=== PATIENT | male | born 1970 | race Caucasian/White ===

== ENCOUNTER 2018-06-12 01:19 | Emergency (ER) | payer OTHER ==
[~2018-06-12] VITALS: Ht 182.9 cm; Wt 95.3 kg
--- NOTE | 2018-06-12 01:20 | NUR ---
Dr. Kinney at bedside for MSE.
[2018-06-12] MEDS ORDERED: ONDANSETRON 4 MG/2 ML VIAL ONE ×2 (01:27→01:29)
[2018-06-12] MEDS ORDERED: IV NORMAL SALINE 1000 ML BAG IV ONE (01:30)
[2018-06-12] MEDS ORDERED: ONDANSETRON 4 MG/2 ML VIAL IV ONE (01:30)
[2018-06-12] MEDS ORDERED: METOCLOPRAMIDE HCL 10 MG/2 ML VIAL ONE (02:04)
[2018-06-12] MEDS ORDERED: METOCLOPRAMIDE HCL 10 MG/2 ML VIAL IV ONE (02:15)
--- NOTE | 2018-06-12 02:35 | NUR ---
PATIENT TOLERATED FLUID CHALLENGE WELL.
--- NOTE | 2018-06-12 02:45 | NUR ---
Patient discharged to home in stable conditon. Written and verbal after care instructions given. Patient verbalizes understanding of instructions.
[2018-06-12 02:46] VITALS: BP 124/58
== END 2018-06-12 02:46 | disposition home or self-care (01) ==
LOC: ER 01:22
DX: R11.2 Nausea with vomiting, unspecified (principal)
CPT/HCPCS: 96374; 96375; 99284; A4663; J2405 ×2; J2765; J7030